=== PATIENT | male | born 1985 | race Caucasian/White ===

== ENCOUNTER 2019-09-15 10:06 | Emergency (ER) | payer MEDICAID ==
[~2019-09-15] VITALS: Ht 172.7 cm; Wt 79.8 kg
[2019-09-15 10:19] VITALS: BP 121/81; Ht 172.7 cm; Wt 79.8 kg
== END 2019-09-15 12:40 | disposition home or self-care (01) ==
LOC: ED 10:06
DX: A64 Unspecified sexually transmitted disease (principal)
CPT/HCPCS: 87491; 87591